=== PATIENT | female | born 1935 | race Caucasian/White ===

== ENCOUNTER 2018-03-28 22:08 | Emergency (ER) | payer OTHER ==
[~2018-03-28] VITALS: Ht 147.3 cm; Wt 54.4 kg
[~2018-03-28 22:08] MED LIST: BUPROPION HCL100 M1 PO; COMBIVENT INH14.7 GM INH; FAMOTIDINE20 MG PO; GABAPENTIN; GABAPENTIN400 MG PO; HYDROCODON-ACE1 EACH PO; LISINOPRIL; LISINOPRIL10 MG PO; LORAZEPAM; OMEPRAZOLE20 MG PO; ROPINIROLE HCL1 MG PO; SIMVASTATIN; SIMVASTATIN80 MG PO; SPIRIVA18 MCG; ULTRAM50 MG PO; WELLBUTRIN
== END 2018-03-29 00:15 | disposition home or self-care (01) ==
LOC: FSED 22:08
DX: L03.317 Cellulitis of buttock (principal); F03.90 Unspecified dementia, unspecified severity, without behavioral disturbance, psychotic disturbance, mood disturbance, and anxiety; M06.9 Rheumatoid arthritis, unspecified; J44.9 Chronic obstructive pulmonary disease, unspecified; Z87.891 Personal history of nicotine dependence
CPT/HCPCS: 99283

== ENCOUNTER 2018-05-16 10:31 | Inpatient (IN) | payer OTHER ==
[~2018-05-16] VITALS: Ht 147.3 cm; Wt 50.9 kg
[2018-05-16] VITALS (23 sets, daily range): BP systolic 99–132; BP diastolic 46–100
[2018-05-16] MEDS ORDERED: SODIUM CHLORIDE 0.9% 1000ML 1,000 ML IV ONE (10:45)
[2018-05-16 10:56] LABS: BASOPHILS % 0.6 % (0.0-1.0); EOSINOPHILS # (AUTO) 0.1 (0.0-0.4); EOSINOPHILS % 1.3 % (0.0-6.0); HEMATOCRIT 34.5 % (34.2-44.1); HEMOGLOBIN 11.1 g/dL (12.0-16.0); LYMPHOCYTES # (AUTO) 0.9 (1.0-3.2); MEAN CORPUSCULAR HEMOGLOBIN 31.4 pg (28-32); MEAN CORPUSCULAR HGB CONC 32.2 g/dL (31-35); MEAN CORPUSCULAR VOLUME 97.5 fL (81-99); MONOCYTES % 14.5 % (4.4-11.3); NEUTROPHILS # (AUTO) 4.9 (2.1-6.9); NEUTROPHILS % 70.3 % (38.7-80.0); PLATELET COUNT 171 x10e3/uL (140-360); RED BLOOD COUNT 3.54 x10e6/uL (3.6-5.1); RED CELL DISTRIBUTION WIDTH 15.4 % (11.7-14.4)
[2018-05-16] MEDS ORDERED: ALBUTEROL/IPRATROPIUM 3 ML NEB NEB ONE (11:00)
[2018-05-16 11:15] LABS: ALANINE AMINOTRANSFERASE 11 IU/L (0-55); ALBUMIN 3.2 g/dL (3.5-5.0); ALBUMIN/GLOBULIN RATIO 1.4 (0.8-2.0); ALKALINE PHOSPHATASE 54 IU/L (40-150); ANION GAP 12.4 mmol/L (8-16); BLOOD UREA NITROGEN 18 mg/dL (7-26); BUN/CREATININE RATIO 22 (6-25); CALCIUM 8.6 mg/dL (8.4-10.2); CARBON DIOXIDE 24 mmol/L (22-29); CHLORIDE 106 mmol/L (98-107); CREATININE, SERUM 0.82 mg/dL (0.57-1.11); EST GLOMERULAR FILTRATION RATE > 60 ML/MIN (60-); GLUCOSE 119 mg/dL (74-118); PHOSPHORUS 3.5 MG/DL (2.3-4.7); POTASSIUM 3.4 mmol/L (3.5-5.1); SODIUM 139 mmol/L (136-145)
[2018-05-16 11:34] LABS: B-TYPE NATRIURETIC PEPTIDE2 < 10.0 pg/mL (0-100)
[2018-05-16 11:35] LABS: THYROID STIMULATING HORMONE 1.208 uIU/mL (0.350-4.940)
--- NOTE | 2018-05-16 11:48 | Diagnostic Imaging Report ---
EXAMINATION: CHEST SINGLE (PORTABLE) INDICATION: Shortness of breath. Hypoxia. COMPARISON: June 10, 2018 Findings: See Impression Impression: 1. Unchanged marked elevation of the right hemidiaphragm presumably related to paralysis. 2. Mild bibasilar atelectasis or scarring. 3. Indeterminate calcifications overlying the left lower lobe. Recommend nonemergent follow-up upright PA and lateral when able. Signed by: Dr. Rj Palacios M.D. on 05/16/2018 11:45 AM
[2018-05-16 13:37] LABS: BILIRUBIN,URINE NEGATIVE (NEGATIVE); CLARITY,URINE SL CLOUDY (CLEAR); COLOR,URINE YELLOW (YELLOW); KETONES,URINE NEGATIVE (NEGATIVE); LEUKOCYTE ESTERASE ,URINE NEGATIVE (NEGATIVE); NITRITE,URINE POSITIVE (NEGATIVE); PROTEIN,URINE DIPSTICK NEGATIVE (NEGATIVE); URINE UROBILINOGEN 0.2 mg/dL (0.2 - 1)
[2018-05-16 14:26] LABS: BACTERIA,URINE MANY /HPF
[2018-05-16 14:27] LABS: AMORPHOUS SEDIMENT,URINE FEW (FEW)
[2018-05-16] MEDS ORDERED: LEVOFLOXACIN 500MG/D5W 100ML 100 ML IV ONE (15:15)
[2018-05-16] MEDS ORDERED: SODIUM CHLORIDE FLUSH 10 ML SYR INJ PRN (15:15)
[2018-05-16] MEDS ORDERED: ACETAMINOPHEN 325 MG TAB PO PRN (18:45)
[2018-05-16] MEDS ORDERED: BENZONATATE 100 MG CAP PO PRN (18:45)
[2018-05-16] MEDS ORDERED: ONDANSETRON HCL INJ 2 MG/ML VIAL IV PRN (18:45)
[2018-05-16] MEDS ORDERED: ALBUTEROL/IPRATROPIUM 3 ML NEB NEB PRN (18:45)
[2018-05-16] MEDS: ALBUTEROL/IPRATROPIUM 3 ML NEB NEB SCH (19:00)
[2018-05-16] MEDS ORDERED: ALBUTEROL0.63 MG/3 INH ×2 (19:33→19:38)
[2018-05-16] MEDS ORDERED: SPIRIVA18 MCG INH ×2 (19:33→19:38)
[2018-05-16] MEDS: METHYLPREDNISOLONE SOD SUCC 40 MG/ML VIAL IV SCH (21:02)
[2018-05-16] MEDS: SODIUM CHLORIDE 0.9% 1000ML 1,000 ML IV SCH (21:12)
[2018-05-17] VITALS (7 sets, daily range): BP systolic 109–158; BP diastolic 50–83
[2018-05-17] MEDS: ALBUTEROL/IPRATROPIUM 3 ML NEB NEB SCH ×4 (01:00→18:47)
[2018-05-17 04:50] LABS: BASOPHILS % 0.3 % (0.0-1.0); HEMATOCRIT 35.8 % (34.2-44.1); HEMOGLOBIN 11.8 g/dL (12.0-16.0); LYMPHOCYTES # (AUTO) 0.6 (1.0-3.2); LYMPHOCYTES % 8.7 % (18.0-39.1); MONOCYTES # (AUTO) 0.1 (0.2-0.8); MONOCYTES % 1.7 % (4.4-11.3); NEUTROPHILS # (AUTO) 5.8 (2.1-6.9); PLATELET COUNT 173 x10e3/uL (140-360); RED BLOOD COUNT 3.69 x10e6/uL (3.6-5.1); RED CELL DISTRIBUTION WIDTH 14.9 % (11.7-14.4)
[2018-05-17 06:13] LABS: ANION GAP 12.4 mmol/L (8-16); BLOOD UREA NITROGEN 18 mg/dL (7-26); BUN/CREATININE RATIO 24 (6-25); CALCIUM 8.6 mg/dL (8.4-10.2); CARBON DIOXIDE 22 mmol/L (22-29); CHLORIDE 107 mmol/L (98-107); CREATININE, SERUM 0.75 mg/dL (0.57-1.11); EST GLOMERULAR FILTRATION RATE > 60 ML/MIN (60-); GLUCOSE 146 mg/dL (74-118); POTASSIUM 4.4 mmol/L (3.5-5.1); SODIUM 137 mmol/L (136-145)
[2018-05-17] MEDS: METHYLPREDNISOLONE SOD SUCC 40 MG/ML VIAL IV SCH ×3 (07:46→21:06)
[2018-05-17] MEDS: SODIUM CHLORIDE 0.9% 1000ML 1,000 ML IV SCH ×3 (07:46→19:56)
[2018-05-17] MEDS ORDERED: TRAMADOL HCL 50 MG TAB PO PRN (09:30)
[2018-05-17] MEDS: LEVOFLOXACIN 500MG/D5W 100ML 100 ML IV SCH (10:11)
[2018-05-17] MEDS: PANTOPRAZOLE SOD 40 MG TABEC PO SCH (11:33)
[2018-05-17] MEDS: FAMOTIDINE 20 MG TAB PO SCH (11:33)
[2018-05-17] MEDS: ENOXAPARIN 30 MG/0.3 ML SYR SC SCH ×2 (17:00→17:09)
[2018-05-17] MEDS: SIMVASTATIN 80 MG TAB PO SCH (21:06)
--- NOTE | 2018-05-17 23:08 | Consultation ---
DATE OF CONSULTATION: PULMONARY CONSULTATION REASON FOR THE CONSULT: Hypotension. HPI: Ms. Shea is an 83-year-old female. She presented to the emergency room with complaints of hypoxia and hypotension. She reported that she has been weak and short of breath. She has been weak for last few days. She follows up at [facility]. She denies any chest pain, nausea, or vomiting. She has chronic right hemidiaphragm paralysis. She reports difficulty breathing, but it is much better now and blood pressure has improved as well. REVIEW OF SYSTEMS GENERAL: Denies any fever or chills. HEAD: Denies any head trauma. ENT: Denies any earache. CVS: Denies any chest pain. RESPIRATORY: Shortness of breath and weakness. The rest of the review of systems are negative except as in HPI. PAST MEDICAL HISTORY: COPD. She has never smoked but has second-hand exposure, hypertension, hypothyroidism, and restless legs syndrome. She is on Spiriva inhaler. PAST SURGICAL HISTORY: Hysterectomy and cholecystectomy. FAMILY AND SOCIAL HISTORY: She does not smoke, does not drink. PHYSICAL EXAMINATION VITALS: Temperature 98.8, pulse of 95, blood pressure 109/50, respiratory rate 18, and O2 sat 100%. Her blood pressure was 90/52 in the emergency room. HEENT: Head is atraumatic, normocephalic. NECK: Supple. CHEST: Clear to auscultation bilaterally. No wheezing. Slightly reduced air entry. HEART: S1 and S2 audible. ABDOMEN: Soft, nontender, and nondistended. EXTREMITIES: No pedal edema. NEUROLOGIC: Awake and alert, following commands. Responds to questions appropriately. LABS: White count of 6000, hemoglobin 11.8, and platelets 173,000. Chemistry is within normal limits. Urinalysis is showing positive nitrite and many bacteria. ASSESSMENT AND PLAN 1. Sidra Shea is an 83-year-old female. She presented to the emergency room possibly septic from urinary tract infection. Intravenous antibiotics will be continued. 2. History of chronic right hemidiaphragm paralysis. Patient is stable. Patient used to use continuous positive airway pressure in the past for that but currently not using it. 3. History of reported chronic obstructive pulmonary disease. She follows up with a shearer screen measurer and trimmer at [facility]. She has never smoked and I am unsure what her pulmonary function test looks like. She is on Spiriva and nebulizer treatment. I will start the nebulizer treatment here. 4. Continue the patient on Solu-Medrol. We will reduce the dose. 5. Lovenox subcutaneous for deep venous thrombosis prophylaxis. 6. Hypotension has resolved. Blood pressure has been stable. She received intravenous fluids and currently stable. Thank you for this consult. Job#: [id number]
[2018-05-18] VITALS (8 sets, daily range): BP systolic 98–151; BP diastolic 48–78
[2018-05-18] MEDS: ALBUTEROL/IPRATROPIUM 3 ML NEB NEB SCH ×4 (01:00→19:38)
[2018-05-18 04:23] LABS: BASOPHILS % 0.1 % (0.0-1.0); HEMATOCRIT 34.2 % (34.2-44.1); HEMOGLOBIN 11.1 g/dL (12.0-16.0); LYMPHOCYTES # (AUTO) 0.6 (1.0-3.2); LYMPHOCYTES % 6.9 % (18.0-39.1); MEAN CORPUSCULAR HGB CONC 32.5 g/dL (31-35); MEAN CORPUSCULAR VOLUME 98.6 fL (81-99); MONOCYTES # (AUTO) 0.4 (0.2-0.8); MONOCYTES % 4.3 % (4.4-11.3); NEUTROPHILS # (AUTO) 7.8 (2.1-6.9); NEUTROPHILS % 88.4 % (38.7-80.0); PLATELET COUNT 172 x10e3/uL (140-360); RED BLOOD COUNT 3.47 x10e6/uL (3.6-5.1); RED CELL DISTRIBUTION WIDTH 15.1 % (11.7-14.4)
[2018-05-18 04:42] LABS: ANION GAP 15.1 mmol/L (8-16); BLOOD UREA NITROGEN 15 mg/dL (7-26); BUN/CREATININE RATIO 21 (6-25); CALCIUM 8.3 mg/dL (8.4-10.2); CARBON DIOXIDE 22 mmol/L (22-29); CHLORIDE 109 mmol/L (98-107); CREATININE, SERUM 0.71 mg/dL (0.57-1.11); EST GLOMERULAR FILTRATION RATE > 60 ML/MIN (60-); GLUCOSE 144 mg/dL (74-118); POTASSIUM 4.1 mmol/L (3.5-5.1); SODIUM 142 mmol/L (136-145)
[2018-05-18] MEDS: METHYLPREDNISOLONE SOD SUCC 40 MG/ML VIAL IV SCH (05:42)
[2018-05-18] MEDS: BUPROPION HCL 100 MG PO SCH (09:00)
[2018-05-18] MEDS: PANTOPRAZOLE SOD 40 MG TABEC PO SCH (09:15)
[2018-05-18] MEDS: FAMOTIDINE 20 MG TAB PO SCH (09:15)
[2018-05-18] MEDS: ROPINIROLE HCL 1 MG TAB PO SCH (09:15)
[2018-05-18] MEDS: LEVOFLOXACIN 500MG/D5W 100ML 100 ML IV SCH (10:02)
[2018-05-18] MEDS: ENOXAPARIN 30 MG/0.3 ML SYR SC SCH (16:11)
[2018-05-18] MEDS: SIMVASTATIN 80 MG TAB PO SCH (21:09)
[2018-05-19] VITALS (11 sets, daily range): BP systolic 110–135; BP diastolic 55–97
[2018-05-19] MEDS: ALBUTEROL/IPRATROPIUM 3 ML NEB NEB SCH ×4 (01:20→19:54)
[2018-05-19] MEDS: BUPROPION HCL 100 MG PO SCH (09:00)
[2018-05-19] MEDS: ROPINIROLE HCL 1 MG TAB PO SCH (09:45)
[2018-05-19] MEDS: FAMOTIDINE 20 MG TAB PO SCH (09:45)
[2018-05-19] MEDS: PANTOPRAZOLE SOD 40 MG TABEC PO SCH (09:46)
[2018-05-19] MEDS: LEVOFLOXACIN 500MG/D5W 100ML 100 ML IV SCH (11:44)
[2018-05-19] MEDS: ENOXAPARIN 30 MG/0.3 ML SYR SC SCH (17:00)
[2018-05-19] MEDS: SIMVASTATIN 80 MG TAB PO SCH (21:55)
[2018-05-20] VITALS (8 sets, daily range): BP systolic 116–134; BP diastolic 50–66
[2018-05-20] MEDS: ALBUTEROL/IPRATROPIUM 3 ML NEB NEB SCH ×4 (01:15→19:20)
[2018-05-20] MEDS: ROPINIROLE HCL 1 MG TAB PO SCH (08:24)
[2018-05-20] MEDS: PANTOPRAZOLE SOD 40 MG TABEC PO SCH (08:24)
[2018-05-20] MEDS: BUPROPION HCL 100 MG PO SCH (08:24)
[2018-05-20] MEDS: FAMOTIDINE 20 MG TAB PO SCH (08:24)
[2018-05-20] MEDS: LEVOFLOXACIN 500MG/D5W 100ML 100 ML IV SCH (09:30)
[2018-05-20] MEDS: ENOXAPARIN 30 MG/0.3 ML SYR SC SCH (17:00)
[2018-05-20] MEDS: SIMVASTATIN 80 MG TAB PO SCH (21:24)
[2018-05-21] VITALS (8 sets, daily range): BP systolic 132–174; BP diastolic 65–91
[2018-05-21] MEDS: ALBUTEROL/IPRATROPIUM 3 ML NEB NEB SCH ×4 (01:00→19:42)
[2018-05-21] MEDS: PANTOPRAZOLE SOD 40 MG TABEC PO SCH (09:00)
[2018-05-21] MEDS: FAMOTIDINE 20 MG TAB PO SCH (09:00)
[2018-05-21] MEDS: ROPINIROLE HCL 1 MG TAB PO SCH (09:00)
[2018-05-21] MEDS: BUPROPION HCL 100 MG PO SCH (09:00)
[2018-05-21] MEDS: LEVOFLOXACIN 500MG/D5W 100ML 100 ML IV SCH (09:09)
[2018-05-21] MEDS: ENOXAPARIN 30 MG/0.3 ML SYR SC SCH (17:00)
[2018-05-21] MEDS: SIMVASTATIN 80 MG TAB PO SCH (21:52)
[2018-05-22] MEDS: ALBUTEROL/IPRATROPIUM 3 ML NEB NEB SCH ×4 (01:25→19:45)
[2018-05-22 08:20] VITALS: BP 141/67
[2018-05-22 08:25] VITALS: BP 141/67
[2018-05-22] MEDS: BUPROPION HCL 100 MG PO SCH (09:00)
[2018-05-22] MEDS ORDERED: SODIUM CHLORIDE 0.9% 250ML 250 ML ONE (09:34)
[2018-05-22] MEDS: ROPINIROLE HCL 1 MG TAB PO SCH (09:48)
[2018-05-22] MEDS: LEVOFLOXACIN 500MG/D5W 100ML 100 ML IV SCH (09:48)
[2018-05-22] MEDS: FAMOTIDINE 20 MG TAB PO SCH (09:48)
[2018-05-22] MEDS: PANTOPRAZOLE SOD 40 MG TABEC PO SCH (09:48)
[2018-05-22 12:23] VITALS: BP 118/56
[2018-05-22] MEDS: ENOXAPARIN 30 MG/0.3 ML SYR SC SCH (16:56)
[2018-05-22 17:03] VITALS: BP 131/75
[2018-05-22] MEDS: SIMVASTATIN 80 MG TAB PO SCH (20:41)
[2018-05-22 20:49] VITALS: BP 135/87
[2018-05-23] VITALS (7 sets, daily range): BP systolic 111–149; BP diastolic 59–92
[2018-05-23] MEDS: ALBUTEROL/IPRATROPIUM 3 ML NEB NEB SCH ×4 (01:25→18:40)
[2018-05-23 04:30] LABS: BASOPHILS % 0.5 % (0.0-1.0); EOSINOPHILS # (AUTO) 0.2 (0.0-0.4); EOSINOPHILS % 3.4 % (0.0-6.0); HEMATOCRIT 34.7 % (34.2-44.1); HEMOGLOBIN 11.1 g/dL (12.0-16.0); LYMPHOCYTES # (AUTO) 1.2 (1.0-3.2); LYMPHOCYTES % 20.5 % (18.0-39.1); MEAN CORPUSCULAR HEMOGLOBIN 31.4 pg (28-32); MONOCYTES # (AUTO) 0.9 (0.2-0.8); MONOCYTES % 15.4 % (4.4-11.3); NEUTROPHILS # (AUTO) 3.5 (2.1-6.9); NEUTROPHILS % 59.9 % (38.7-80.0); PLATELET COUNT 170 x10e3/uL (140-360); RED BLOOD COUNT 3.54 x10e6/uL (3.6-5.1); RED CELL DISTRIBUTION WIDTH 15.7 % (11.7-14.4)
[2018-05-23 04:53] LABS: ANION GAP 13.6 mmol/L (8-16); BLOOD UREA NITROGEN 15 mg/dL (7-26); BUN/CREATININE RATIO 21 (6-25); CALCIUM 7.8 mg/dL (8.4-10.2); CARBON DIOXIDE 26 mmol/L (22-29); CHLORIDE 105 mmol/L (98-107); CREATININE, SERUM 0.72 mg/dL (0.57-1.11); EST GLOMERULAR FILTRATION RATE > 60 ML/MIN (60-); GLUCOSE 106 mg/dL (74-118); POTASSIUM 3.6 mmol/L (3.5-5.1); SODIUM 141 mmol/L (136-145)
[2018-05-23] MEDS: BUPROPION HCL 100 MG PO SCH (09:00)
[2018-05-23] MEDS: PANTOPRAZOLE SOD 40 MG TABEC PO SCH (09:48)
[2018-05-23] MEDS: ROPINIROLE HCL 1 MG TAB PO SCH (09:48)
[2018-05-23] MEDS: FAMOTIDINE 20 MG TAB PO SCH (09:48)
[2018-05-23] MEDS: LEVOFLOXACIN 500MG/D5W 100ML 100 ML IV SCH (12:45)
[2018-05-23] MEDS: ENOXAPARIN 30 MG/0.3 ML SYR SC SCH ×2 (16:59→17:00)
[2018-05-23] MEDS: SIMVASTATIN 80 MG TAB PO SCH (20:35)
[2018-05-24] VITALS (7 sets, daily range): BP systolic 109–140; BP diastolic 56–76
[2018-05-24] MEDS: ALBUTEROL/IPRATROPIUM 3 ML NEB NEB SCH ×4 (01:40→19:15)
[2018-05-24] MEDS: BUPROPION HCL 100 MG PO SCH (09:00)
[2018-05-24] MEDS: PANTOPRAZOLE SOD 40 MG TABEC PO SCH (09:03)
[2018-05-24] MEDS: FAMOTIDINE 20 MG TAB PO SCH (09:03)
[2018-05-24] MEDS: ROPINIROLE HCL 1 MG TAB PO SCH (09:03)
[2018-05-24] MEDS: SIMVASTATIN 80 MG TAB PO SCH (21:40)
[2018-05-25] VITALS (7 sets, daily range): BP systolic 117–148; BP diastolic 57–68
[2018-05-25] MEDS: ALBUTEROL/IPRATROPIUM 3 ML NEB NEB SCH ×3 (06:58→15:05)
[2018-05-25] MEDS: PANTOPRAZOLE SOD 40 MG TABEC PO SCH (08:10)
[2018-05-25] MEDS: FAMOTIDINE 20 MG TAB PO SCH (08:10)
[2018-05-25] MEDS: BUPROPION HCL 100 MG PO SCH (08:10)
[2018-05-25] MEDS: ROPINIROLE HCL 1 MG TAB PO SCH (08:10)
--- NOTE | 2018-05-25 17:54 | Discharge Summary ---
PRIMARY CARE PHYSICIAN: Dr. Johann Ellington. FRONT EDGER: Dr. Gracie Olivares. FINAL DIAGNOSES: 1. Sepsis with shock associated with hypotension with responsive to intravenous multiple fluid boluses, much improved. 2. Acute hypoxia secondary to right diaphragmatic paralysis by history. 3. Oxygen required. SUMMARY: Patient is an 83-year-old female who came in with basically generalized weakness, blood pressure that was low. She also had low oxygen saturation, room air oxygen saturation approximately 82% to 84%. Patient has history of right diaphragmatic paralysis. She was also found to have a urinary tract infection, started on IV antibiotics. The patient was a little confused, but overall she was stable. She did receive multiple IV fluid boluses, and blood pressure subsequently improved, systolic in the 100s. Patient was stable. The patient was comfortable. She has now qualified for oxygen support. The patient refused a CT scan of abdomen and pelvis. She does have a urinary tract infection that was treated. The patient is stable at this time. She will go home today. Follow up as an outpatient with Dr. Johann Hogan in approximately 1 week. Discharge medication is Tessalon Perles 100 mg q.6 p.r.n. for cough and Zofran ODT as needed for nausea and vomiting. The patient will resume all home medication. I went ahead and discontinued her lisinopril blood pressure medication since the patient does not need it. Patient stable, discharged home today. Job#: [id number] [facility]RISTEL
== END 2018-05-25 19:33 | disposition home or self-care (01) | DRG 871 ==
LOC: ER 10:39 → ERHOLD 15:11 → IMCU 16:57 → OBSVTOIN 05-17 09:26 → MED/SURG2 05-19 15:41
PROVIDERS: ADMIT Internal Medicine; ATTEND Internal Medicine
DX: A41.9 Sepsis, unspecified organism (principal); R65.21 Severe sepsis with septic shock; N39.0 Urinary tract infection, site not specified; E44.0 Moderate protein-calorie malnutrition; E86.0 Dehydration; R53.81 Other malaise; R09.02 Hypoxemia; J98.6 Disorders of diaphragm; J44.9 Chronic obstructive pulmonary disease, unspecified; Z88.1 Allergy status to other antibiotic agents; Z88.5 Allergy status to narcotic agent; Z88.8 Allergy status to other drugs, medicaments and biological substances
CPT/HCPCS: 36415; 71045; 80048; 80053; 81001; 82948; 83605; 83735; 83880; 84100; 84443; 84484; 85025; 87040; 87086; 93005; 94640; 97139; 99284; G0378; J1650; J1956; J2920; J7030; J7050